=== PATIENT | female | born 1950 | race Caucasian/White ===

== ENCOUNTER → 2019-12-30 18:00 | Outpatient (BNVA) | payer MEDICARE, OTHER, SELFPAY | PROVIDERS: Family Provider Obstetrics & Gynecology; PCP Family Medicine; Visit Provider Nurse Practitioner | DX: R05 Cough (principal); B34.9 Viral infection, unspecified | CPT/HCPCS: 87635 ==

== ENCOUNTER 2020-11-19 09:58 | Outpatient (CLI) | payer MEDICARE, OTHER, SELFPAY ==
--- NOTE | 2020-11-19 10:15 | US_ITS ---
WS: [id number] ULTRASOUND PELVIS TECHNIQUE: Transabdominal. Patient refused endovaginal ultrasound due to endometrial biopsy yesterday CLINICAL INFORMATION: POSTMENOPAUSAL BLEEDING : No. COMPARISON: None. FINDINGS: Uterus Orientation: Anteverted. Size: 10.7 cm x 6.0 cm x 4.6 cm Masses: None. Cervix: Normal Endometrium: Heterogeneous and markedly thickened. Endometrium thickness: 2.2 cm. Adnexa: No adnexal masses. Neither ovary is visualized. Free fluid: None. Other findings: None. US/US pelvic complete* [id number] IMPRESSION: 1. Heterogeneous markedly thickened endometrium measuring 22 mm abnormal in a postmenopausal patient and suspicious for neoplasia. 2. Ovaries not seen bilaterally. No adnexal masses. 3. No free fluid in the cul-de-sac. 4. No other significant findings.
== END 2020-11-19 09:59 | disposition home or self-care (01) ==
PROVIDERS: PCP Family Medicine; Visit Provider Family Medicine
DX: N95.0 Postmenopausal bleeding (principal)
CPT/HCPCS: 76856